=== PATIENT | male | born 1955 ===

== ENCOUNTER 2017-03-29 11:11 | Emergency (ER) | payer MEDICAID ==
[2017-03-29 11:18] VITALS: BMI 29.7
[2017-03-29 11:21] VITALS: PULSE 68
--- NOTE | 2017-03-29 11:56 | C.PDOC ---
History Of Present Illness 61 year old male who presents to the ER with a complaint of a spinning sensation worseing the morning when he sits up in bed for the past 3 days. Patient states it occasionally occurs during the day but last only a few seconds. Denies headache, numbness, weakness, visual changes, or hearing changes. Time Seen by Provider: 03/29/17 11:52 Chief Complaint (Nursing): Dizziness/Lightheaded History Per: Patient History/Exam Limitations: no limitations Onset/Duration Of Symptoms: Hrs Current Symptoms Are (Timing): Still Present Activity At Onset Of Symptoms: Other (Sitting up) Seizure Or Post-ictal Symptoms: None Fall Associated With With Symptoms: No Recent travel outside of the [place]: No - Symptoms Of CVA Associated Symptoms: denies: Impaired Speech, Seizure Activity, New Vision Deficit(Left), New Vision Deficit(Right), Decreased Ability To Walk, New Confusion Recent Aspirin Use: No Current Coumadin Use?: No Recent Head Trauma: No Past Medical History Reviewed: Historical Data, Nursing Documentation, Vital Signs Vital Signs: Last Vital Signs Temp 97.7 F 03/29/17 12:21 Pulse 68 03/29/17 12:21 Resp 17 03/29/17 12:21 BP 135/83 03/29/17 12:21 Pulse Ox 97 03/29/17 12:21 - Medical History PMH: Anxiety, Back Problems, Hyperlipidemia Surgical History: Back Surgery Family History: States: Other Other Family History: nc - Social History Hx Tobacco Use: No Hx Alcohol Use: No Hx Substance Use: No - Immunization History Hx Tetanus Toxoid Vaccination: No Hx Influenza Vaccination: No Hx Pneumococcal Vaccination: No Review Of Systems Constitutional: Negative for: Fever, Chills Eyes: Negative for: Vision Change ENT: Negative for: Other (Hearing changes) Cardiovascular: Negative for: Chest Pain Respiratory: Negative for: Cough, Shortness of Breath Gastrointestinal: Negative for: Nausea, Vomiting, Abdominal Pain, Diarrhea Neurological: Positive for: Other (Spinning sensation). Negative for: Weakness , Numbness, Headache Physical Exam - Physical Exam Appears: Non-toxic Skin: Normal Color, Warm, Dry Head: Atraumatic, Normacephalic Eye(s): bilateral: Normal Inspection, PERRL, EOMI Oral Mucosa: Moist Neck: Normal, Supple Chest: Symmetrical, No Tenderness Cardiovascular: Rhythm Regular, No Murmur Respiratory: Normal Breath Sounds, No Rales, No Rhonchi, No Wheezing Gastrointestinal/Abdominal: Soft, No Tenderness Neurological/Psych: Oriented x3, Normal Speech, Normal Cognition, Normal Cranial Nerves, Normal Motor, Normal Sensation, Other (No focal deficits) Gait: Steady ED Course And Treatment O2 Sat by Pulse Oximetry: 99 (Room air) Pulse Ox Interpretation: Normal Progress Note: EKG and accucheck ordered. Disposition - Disposition Disposition: HOME/ ROUTINE Disposition Time: 12:08 Condition: GOOD Additional Instructions: Please follow up with your doctor in the next week. Return to the ER for any worsening symptoms, headache, visual or hearing changes, numbness, weakness or for any other concerns. Prescriptions: Meclizine [Meclizine*] 25 mg PO Q8H PRN #30 tab PRN Reason: vertigo Instructions: Benign Paroxysmal Positional Vertigo (ED) Forms: General Discharge Instructions - Clinical Impression Clinical Impression: BPPV (benign paroxysmal positional vertigo) - Scribe Statement The provider has reviewed the documentation as recorded by the Scribdenise James All medical record entries made by the Scribe were at my direction and personally dictated by me. I have reviewed the chart and agree that the record accurately reflects my personal performance of the history, physical exam, medical decision making, and the department course for this patient. I have also personally directed, reviewed, and agree with the discharge instructions and disposition.
[2017-03-29 12:23] VITALS: BP 135/83; RESP 17; TEMP 97.7
[2017-03-29 20:04] VITALS: O2SAT 99
--- NOTE | 2017-03-30 21:35 | CARD ---
APPROVED REPORT EKG Measurement Heart [id number] CT 124P32 [id number] <Conclusion> Normal sinus rhythm Normal ECG
== END 2017-03-29 12:22 | disposition home or self-care (01) ==
LOC: C.ER 11:11
DX: H81.10 Benign paroxysmal vertigo, unspecified ear (principal)

== ENCOUNTER 2017-12-28 09:15 | Emergency (ER) | payer MEDICAID ==
[2017-12-28 09:15] VITALS: BMI 29.7
--- NOTE | 2017-12-28 09:48 | C.PDOC ---
History Of Present Illness 62 year old male presents to the ED c/o leg twitching at night while laying in bed. Patient reports that at times his leg aches. Patient denies fever, chills, nausea, weakness, numbness. Time Seen by Provider: 12/28/17 09:31 Chief Complaint (Nursing): Lower Extremity Problem/Injury History Per: Patient History/Exam Limitations: no limitations Onset/Duration Of Symptoms: Days Current Symptoms Are (Timing): Still Present Recent travel outside of the [place]: No Additional History Per: Patient - Knee Description Of Injury: Other Currently Unable To: Other Past Medical History Reviewed: Historical Data, Nursing Documentation, Vital Signs Vital Signs: Last Vital Signs Temp 97.4 F L 12/28/17 09:21 Pulse 68 12/28/17 09:21 Resp 20 12/28/17 09:21 BP 129/83 12/28/17 09:21 Pulse Ox 96 12/28/17 10:53 - Medical History PMH: Anxiety, Back Problems, Hyperlipidemia Surgical History: Back Surgery Family History: States: Unknown Family Hx - Social History Hx Tobacco Use: No Hx Alcohol Use: No Hx Substance Use: No - Immunization History Hx Tetanus Toxoid Vaccination: No Hx Influenza Vaccination: No Hx Pneumococcal Vaccination: No Review Of Systems Constitutional: Negative for: Fever, Chills Cardiovascular: Negative for: Chest Pain Respiratory: Negative for: Shortness of Breath Gastrointestinal: Negative for: Abdominal Pain Musculoskeletal: Positive for: Leg Pain (twitching ) Skin: Negative for: Rash Neurological: Negative for: Weakness, Numbness Physical Exam - Physical Exam Appears: Non-toxic, No Acute Distress Skin: Normal Color, Warm, Dry Head: Atraumatic, Normacephalic Eye(s): bilateral: Normal Inspection Nose: No Discharge Oral Mucosa: Moist Neck: Normal ROM, Supple Extremity: Normal ROM, No Tenderness, Capillary Refill (< 2 seconds), No Swelling Pulses: Left Dorsalis Pedis: Normal, Right Dorsalis Pedis: Normal Neurological/Psych: Oriented x3, Normal Motor, Normal Sensation Gait: Steady ED Course And Treatment O2 Sat by Pulse Oximetry: 96 (On RA) Pulse Ox Interpretation: Normal Medical Decision Making Medical Decision Making: Assessment: restless leg syndrome Patient reports Gabapentin worked in the past Patient was prescribed gabapentin and advised to follow up with PMD in 2 days. Disposition Counseled Patient/Family Regarding: Diagnosis, Need For Followup, Rx Given - Disposition Referrals: Ben Varghese MD [Medical Doctor] - Disposition: HOME/ ROUTINE Disposition Time: 09:46 Condition: STABLE Additional Instructions: follow up with your doctor in 2 days call to make an appointment take medications as prescribed return to ER if symptoms worsens or progress Prescriptions: Gabapentin 300 mg PO DAILY #15 capsule Instructions: Restless Legs Syndrome Forms: [facility] (Armenian), General Discharge Instructions - Clinical Impression Clinical Impression: Restless leg syndrome - Scribe Statement The provider has reviewed the documentation as recorded by the Scribe Bennett Quintero All medical record entries made by the Scribe were at my direction and personally dictated by me. I have reviewed the chart and agree that the record accurately reflects my personal performance of the history, physical exam, medical decision making, and the department course for this patient. I have also personally directed, reviewed, and agree with the discharge instructions and disposition.
[2017-12-28 09:49] VITALS: BP 129/83; PULSE 68; RESP 20; TEMP 97.4; O2SAT 96
== END 2017-12-28 09:55 | disposition home or self-care (01) ==
LOC: C.ER 09:15
DX: G25.81 Restless legs syndrome (principal)

== ENCOUNTER 2018-02-02 11:18 | Emergency (ER) | payer MEDICAID ==
[2018-02-02 11:19] VITALS: BMI 29.7
[2018-02-02 12:54] LABS: BASO # 0.1 K/uL (0.0-0.2); BASO % 0.7 % (0.0-2.0); EOS # 0.2 K/uL (0.0-0.7); EOS % 2.2 % (0.0-4.0); HEMOGLOBIN 15.3 g/dL (12.0-18.0); LYMPH # 2.7 K/uL (1.0-4.3); LYMPH % 33.3 % (20.0-40.0); MEAN CELL VOLUME 89.1 fL (80.0-94.0); MEAN CORPUSCULAR HEMOGLOBIN 29.8 pg (27.0-31.0); MEAN CORPUSCULAR HGB CONC 33.5 g/dL (33.0-37.0); MEAN PLATELET VOLUME 9.4 fL (7.2-11.7); MONO # 0.9 K/uL (0.0-0.8); MONO % 11.1 % (0.0-10.0); NEUT # 4.3 K/uL (1.8-7.0); NEUT % 52.7 % (50.0-75.0); NRBC % 0.1 % (0.0-2.0); RBC 5.12 Mil/uL (4.40-5.90); RED CELL DISTRIBUTION WIDTH 13.9 % (11.5-14.5); WHITE BLOOD COUNT 8.2 K/uL (4.8-10.8)
[2018-02-02 13:04] LABS: ALB/GLOB RATIO 1.2 (1.0-2.1); ALBUMIN 4.2 g/dL (3.5-5.0); ALT/SGPT 45 U/L (21-72); AST/SGOT 25 U/L (17-59); BLOOD UREA NITROGEN 17 mg/dL (9-20); CALCIUM 9.4 mg/dl (8.6-10.4); GFR AFRICAN-AMERICAN > 60; GFR NON-AFRICAN AMERICAN > 60
[2018-02-02 13:11] LABS: SQUAMOUS EPITHIAL 1 /hpf (0-5); URINE BACTERIA RARE (<OCC); URINE BILIRUBIN NEGATIVE (NEGATIVE); URINE BLOOD NEGATIVE (NEGATIVE); URINE CLARITY Clear (Clear); URINE COLOR Yellow (YELLOW); URINE GLUCOSE (UA) NORMAL (Normal); URINE LEUKOCYTE ESTERASE NEG Leu/uL (Negative); URINE PROTEIN NEGATIVE (NEGATIVE); URINE UROBILINOGEN NORMAL mg/dL (0.2-1.0)
[2018-02-02 13:25] LABS: BARBITURATES, UR NEGATIVE (NEGATIVE); OPIATES, UR NEGATIVE (NEGATIVE); PHENCYCLIDINE, UR NEGATIVE (NEGATIVE)
--- NOTE | 2018-02-02 13:29 | RAD ---
HISTORY: chest pain COMPARISON: 10/10/2013 TECHNIQUE: Chest PA and lateral FINDINGS: LUNGS: No active pulmonary disease. PLEURA: No significant pleural effusion identified. No pneumothorax apparent. CARDIOVASCULAR: Normal. OSSEOUS STRUCTURES: No significant abnormalities. VISUALIZED UPPER ABDOMEN: Normal. OTHER FINDINGS: None. IMPRESSION: No active disease.
[2018-02-02 13:44] LABS: BENZODIAZEPINES, UR POSITIVE (NEGATIVE)
[2018-02-02 13:52] VITALS: BP 116/83; PULSE 64; RESP 18; O2SAT 98
--- NOTE | 2018-02-02 14:10 | C.PDOC ---
History Of Present Illness 62 year old male presents to the ED for evaluation of pain to his left upper quadrant which has been intermittent for the past week. Patient also reports vomiting and states symptoms worsen at night. He denies any association of pain with movement and when taking deep breaths. Patient has been taking Ciproflaxin and Dicyclomine as prescribed. He denies fever, chills, dysuria. Time Seen by Provider: 02/02/18 12:24 Chief Complaint (Nursing): Abdominal Pain History Per: Patient History/Exam Limitations: no limitations Onset/Duration Of Symptoms: Days (1 week ), Intermittent Episodes Current Symptoms Are (Timing): Still Present Location Of Pain/Discomfort: LUQ Quality Of Discomfort: "Pain" Associated Symptoms: Vomiting. denies: Fever, Chills, Urinary Symptoms Exacerbating Factors: denies: Movement, Deep Breaths Additional History Per: Patient Past Medical History Reviewed: Historical Data, Nursing Documentation, Vital Signs Vital Signs: Last Vital Signs Temp Pulse 64 02/02/18 13:52 Resp 18 02/02/18 13:52 BP 116/83 02/02/18 13:52 Pulse Ox 98 02/02/18 14:29 - Medical History PMH: Anxiety, Back Problems, Hyperlipidemia Surgical History: Back Surgery Family History: States: Unknown Family Hx - Social History Hx Tobacco Use: No Hx Alcohol Use: No Hx Substance Use: No - Immunization History Hx Tetanus Toxoid Vaccination: No Hx Influenza Vaccination: No Hx Pneumococcal Vaccination: No Review Of Systems Constitutional: Negative for: Fever, Chills Gastrointestinal: Positive for: Vomiting, Abdominal Pain (left upper quadrant ) Genitourinary: Negative for: Dysuria Physical Exam - Physical Exam Appears: Non-toxic, No Acute Distress Skin: Normal Color, Warm, Dry Head: Atraumatic, Normacephalic Eye(s): bilateral: Normal Inspection Oral Mucosa: Moist Neck: Supple Chest: Symmetrical, No Deformity, No Tenderness Cardiovascular: Rhythm Regular, No Murmur Respiratory: Normal Breath Sounds, No Rales, No Rhonchi, No Wheezing Gastrointestinal/Abdominal: Soft, No Tenderness, No Guarding, No Rebound Back: No CVA Tenderness Extremity: Normal ROM, Capillary Refill (less than 2 seconds ) Neurological/Psych: Oriented x3, Normal Speech, Normal Cognition ED Course And Treatment - Laboratory Results Result Diagrams: 02/02/18 12:48 02/02/18 12:48 ECG: Interpreted By Me, Viewed By Me ECG Rhythm: Sinus Rhythm Interpretation Of ECG: Normal Sinus Rhyth at rate 59bpm. No ST elevations or depressions. Rate From EC O2 Sat by Pulse Oximetry: 98 (on RA) Pulse Ox Interpretation: Normal - Other Rad CXR X-Ray: Interpreted by Me, Viewed By Me, Read By Radiologist Interpretation: HISTORY: chest pain. COMPARISON: 10/10/2013. TECHNIQUE: Chest PA and lateral. FINDINGS: LUNGS: No active pulmonary disease. PLEURA: No significant pleural effusion identified. No pneumothorax apparent. CARDIOVASCULAR: Normal. OSSEOUS STRUCTURES: No significant abnormalities. VISUALIZED UPPER ABDOMEN: Normal. OTHER FINDINGS: None. IMPRESSION: No active disease. Medical Decision Making Medical Decision Making: Impression: 62 year old male with left upper quadrant abdominal pain Plan: * bloodwork * urinalysis * CXR * EKG * reassess and disposition Progress; Bloodwork, urinalysis, CXR, EKG ordered and reviewed. Disposition Counseled Patient/Family Regarding: Diagnosis, Need For Followup - Disposition Disposition: HOME/ ROUTINE Disposition Time: 14:09 Condition: STABLE Forms: General Discharge Instructions, [facility] (Guinean), Work Excuse - POA Present On Arrival: None - Clinical Impression Clinical Impression: Abdominal pain - Scribe Statement The provider has reviewed the documentation as recorded by the Scribe (Haritha Gallardo) Provider Attestation: All medical record entries made by the Scribe were at my direction and personally dictated by me. I have reviewed the chart and agree that the record accurately reflects my personal performance of the history, physical exam, medical decision making, and the department course for this patient. I have also personally directed, reviewed, and agree with the discharge instructions and disposition.
--- NOTE | 2018-02-03 19:25 | CARD ---
APPROVED REPORT EKG Measurement Heart [id number] TN 148P33 [id number] <Conclusion> Sinus bradycardia Otherwise normal ECG
== END 2018-02-02 14:18 | disposition home or self-care (01) ==
LOC: C.ER 11:18
DX: R10.9 Unspecified abdominal pain (principal); E78.5 Hyperlipidemia, unspecified

== ENCOUNTER 2018-04-01 17:06 | Emergency (ER) | payer MEDICAID ==
[2018-04-01 17:07] VITALS: BMI 29.7
--- NOTE | 2018-04-01 18:03 | C.PDOC ---
History Of Present Illness 62 year old male with a history of hernia surgery two weeks ago presents to the emergency department with complaints erythema and drainage from one wound. Patient states he noticed these symptoms a few days ago; he denies fever, or any other complaints. Time Seen by Provider: 04/01/18 17:59 Chief Complaint (Nursing): Abnormal Skin Integrity History Per: Patient History/Exam Limitations: no limitations Onset/Duration Of Symptoms: Days Current Symptoms Are (Timing): Still Present Location Of Injury: Right: Abdomen Quality Of Symptoms: Draining, Other (erythema) Past Medical History Reviewed: Historical Data, Nursing Documentation, Vital Signs Vital Signs: Last Vital Signs Temp 98.4 F 04/01/18 20:28 Pulse 83 04/01/18 20:28 Resp 16 04/01/18 20:28 BP 137/73 04/01/18 20:28 Pulse Ox 99 04/01/18 20:28 - Medical History PMH: Anxiety, Back Problems, Hyperlipidemia Surgical History: Back Surgery, Hernia Repair Family History: States: No Known Family Hx - Social History Hx Tobacco Use: No Hx Alcohol Use: No Hx Substance Use: No - Immunization History Hx Tetanus Toxoid Vaccination: Yes Hx Influenza Vaccination: Yes Hx Pneumococcal Vaccination: No Review Of Systems Except As Marked, All Systems Reviewed And Found Negative. Skin: Positive for: Other (erythema, drainage from hernia repair wound) Physical Exam - Physical Exam Appears: Non-toxic, No Acute Distress Skin: Warm, Dry, Other (wound with 3cm of surrounding erythema to the right inter-abdominal area. ) Head: Atraumatic, Normacephalic Eye(s): bilateral: Normal Inspection Nose: Normal Oral Mucosa: Moist Neck: Normal, Supple Chest: Symmetrical Cardiovascular: Rhythm Regular, No Murmur Respiratory: Normal Breath Sounds, No Rales, No Rhonchi, No Wheezing Gastrointestinal/Abdominal: Normal Exam, Soft, No Tenderness, No Guarding, No Rebound Extremity: Normal ROM Neurological/Psych: Oriented x3, Normal Speech, Normal Cognition ED Course And Treatment - Laboratory Results Result Diagrams: 04/01/18 18:35 04/01/18 18:35 O2 Sat by Pulse Oximetry: 96 (RA) Pulse Ox Interpretation: Normal Medical Decision Making Medical Decision Making: post op wound infection Plan: CMP CBC PTT Prothrombin Time Rocephin 1gm Vancomycin Inj 250ml IVPB US Testicular case discussed with surgicla resident. pt refuses testicular US, states no pain at this time. explained possiblity of torsion, but pt refuses US. seen by surgeyr team, who discussed with surgeon director hr communications and pts primary surgeon. agree to outpt fu in 2 days. Disposition - Disposition Referrals: [facility] [Outside] [facility] [Outside] Disposition: HOME/ ROUTINE Disposition Time: 10:00 Condition: STABLE Additional Instructions: please follow up with you surgeon return to er with worsening symptoms or concerns. Prescriptions: Sulfamethoxazole/Trimethoprim [Bactrim DS 800 mg-160 mg] 1 tab PO BID #20 tab Instructions: How to Prevent Surgical Site Infections, Surgical Wound (DC), Wound Infection Forms: [employer] (Hungarian) - Clinical Impression Clinical Impression: Postoperative wound infection - Scribe Statement The provider has reviewed the documentation as recorded by the Scribe (Sal Mitchell) Provider Attestation: All medical record entries made by the Scribe were at my direction and personally dictated by me. I have reviewed the chart and agree that the record accurately reflects my personal performance of the history, physical exam, medical decision making, and the department course for this patient. I have also personally directed, reviewed, and agree with the discharge instructions and disposition.
[2018-04-01 18:39] LABS: BASO # 0.1 K/uL (0.0-0.2); BASO % 0.7 % (0.0-2.0); EOS # 0.5 K/uL (0.0-0.7); EOS % 6.3 % (0.0-4.0); HEMOGLOBIN 14.2 g/dL (12.0-18.0); LYMPH # 2.1 K/uL (1.0-4.3); LYMPH % 25.1 % (20.0-40.0); MEAN CORPUSCULAR HEMOGLOBIN 29.4 pg (27.0-31.0); MEAN CORPUSCULAR HGB CONC 33.4 g/dL (33.0-37.0); MEAN PLATELET VOLUME 9.6 fL (7.2-11.7); MONO # 0.8 K/uL (0.0-0.8); MONO % 9.3 % (0.0-10.0); NEUT # 4.9 K/uL (1.8-7.0); NEUT % 58.6 % (50.0-75.0); RBC 4.84 Mil/uL (4.40-5.90); RED CELL DISTRIBUTION WIDTH 13.9 % (11.5-14.5); WHITE BLOOD COUNT 8.3 K/uL (4.8-10.8)
[2018-04-01 18:52] LABS: ALB/GLOB RATIO 1.4 (1.0-2.1); ALBUMIN 4.3 g/dL (3.5-5.0); ALT/SGPT 38 U/L (21-72); AST/SGOT 23 U/L (17-59); BLOOD UREA NITROGEN 22 mg/dL (9-20); CALCIUM 9.2 mg/dl (8.6-10.4); GFR AFRICAN-AMERICAN > 60; GFR NON-AFRICAN AMERICAN > 60
[2018-04-01 19:02] LABS: INR 1.1; PROTHROMBIN TIME 11.5 SECONDS (9.7-12.2)
[2018-04-01] MEDS ORDERED: Vancomycin 1 gm/NS 200 ml 1 GM/200 ML BAG IVPB ONE (20:00)
--- NOTE | 2018-04-01 20:47 | CP.PCM.CON ---
History of Present Illness - History of Present Illness History of Present Illness: General Surgery Consult for Dr. Gallardo Consulted for surgical site infection 62M presents to the ED POD#14 s/p Robotic inguinal hernia repair with Dr. Olivas at [place]. He reports that on POD 9 his plastic dressing fell off in the shower. By day 12 he reports noticable erythema at the right sided port site. He reports that yesterday he was able to express "1 drop of pus" from the wound. He thought at the time it was the lotion that he was applying however today he looked at the lotion and said the color/texture was different. He reports that he has pain in the area surrounding the wound. He reports the pain as sharp and reports that he took motrin 600mg which did not help. He denies any fevers, chills, he denies changes in bowel habits, or character of his stools, denies nausea or vomiting. He reports the reason he came to the ER is because the surgeon told him " If there is any pus or blood from the incision site go to the nearest ER emergently." PMH: Denies PMH or psych history however chart reflects history of BIPOLAR PSH: Robotic inguinal hernia repair Meds: Motrin ALL: Denies Social: Denies Tobacco, Ethanol, or Drugs Review of Systems - Review of Systems All systems: reviewed and no additional remarkable complaints except - Constitutional Constitutional: absent: Anorexia, Chills - EENT Eyes: absent: Blurred Vision, Change in Vision Ears: absent: Decreased Hearing, Tinnitus - Cardiovascular Cardiovascular: absent: Chest Pain, Dyspnea - Respiratory Respiratory: absent: Dyspnea, Dyspnea on Exertion - Gastrointestinal Gastrointestinal: absent: Abdominal Pain, Bloating - Genitourinary Genitourinary: absent: Difficulty Urinating, Dysuria Past Patient History - Infectious Disease Hx of Infectious Diseases: None - Past Social History Smoking Status: Never Smoked - MUSCULOSKELETAL/RHEUMATOLOGICAL Hx Musculoskeletal Disorders: Yes - GENITOURINARY/GYNECOLOGICAL Hx Genitourinary Disorders: Yes Hx Prostate Problems: Yes Other/Comment: Prostate sx - PSYCHIATRIC Hx Anxiety: Yes Hx Substance Use: No - SURGICAL HISTORY Hx Surgeries: Yes Hx Herniorrhaphy: Yes Hx Orthopedic Surgery: Yes (right shoulder) - ANESTHESIA Hx Anesthesia: Yes Hx Anesthesia Reactions: No Hx Malignant Hyperthermia: No Meds Home Medications: Home Medication List Medication Instructions Recorded Confirmed Type Sulfamethoxazole/Trimethoprim 1 tab PO BID #20 tab 04/01/18 Rx [Bactrim DS 800 mg-160 mg] Allergies/Adverse Reactions: Allergies Allergy/AdvReac Type Severity Reaction Status Date / Time acetaminophen [From Tylenol] Allergy ITCHING Verified 02/02/18 11:43 diphenhydramine HCl Allergy ITCHING Verified 02/02/18 11:43 [From Benadryl] - Medications Medications: Current Medications Vancomycin/Sodium Chloride (Vancomycin 1 Gm/Ns 200 Ml) 1 gm in 200 mls @ 133.333 mls/hr IVPB ONCE ONE PRN Reason: Protocol Stop: 04/01/18 21:29 Ceftriaxone Sodium 1 gm/ (Sodium Chloride) 100 mls @ 100 mls/hr IVPB DAILY MANDEEP PRN Reason: Protocol Last Admin: 04/01/18 20:08 Dose: 100 mls/hr Physical Exam - Constitutional Appears: Non-toxic, No Acute Distress - Head Exam Head Exam: ATRAUMATIC, NORMOCEPHALIC - Eye Exam Eye Exam: EOMI, Normal appearance - ENT Exam ENT Exam: Mucous Membranes Moist, Normal Exam - Respiratory Exam Respiratory Exam: NORMAL BREATHING PATTERN - Cardiovascular Exam Cardiovascular Exam: +S1, +S2 - GI/Abdominal Exam GI & Abdominal Exam: Soft. absent: Normal Bowel Sounds Additional comments: Localized tenderness to the area surrounding the right port site incision with surrounding erythema about 1cm radius, no fluctuance. - Neurological Exam Neurological exam: Alert, Oriented x3 - Psychiatric Exam Psychiatric exam: Normal Affect, Normal Mood - Skin Skin Exam: Dry, Intact Results - Vital Signs Recent Vital Signs: Last Vital Signs Temp 98.4 F 04/01/18 20:28 Pulse 83 04/01/18 20:28 Resp 16 04/01/18 20:28 BP 137/73 04/01/18 20:28 Pulse Ox 99 04/01/18 20:28 - Labs Result Diagrams: 04/01/18 18:35 04/01/18 18:35 Labs: Laboratory Results - last 24 hr 04/01/18 04/01/18 04/01/18 18:35 18:35 18:46 WBC 8.3 RBC 4.84 Hgb 14.2 Hct 42.6 MCV 88.0 MCH 29.4 MCHC 33.4 RDW 13.9 Plt Count 176 MPV 9.6 Neut % (Auto) 58.6 Lymph % (Auto) 25.1 Harrison % (Auto) 9.3 Eos % (Auto) 6.3 H Baso % (Auto) 0.7 Neut # (Auto) 4.9 Lymph # (Auto) 2.1 Harrison # (Auto) 0.8 Eos # (Auto) 0.5 Baso # (Auto) 0.1 PT 11.5 INR 1.1 APTT 33 Sodium 144 Potassium 3.7 Chloride 103 Carbon Dioxide 30 Anion Gap 15 BUN 22 H Creatinine 1.0 Est GFR ( Amer) > 60 Est GFR (Non-Af Amer) > 60 Random Glucose 143 H Calcium 9.2 Total Bilirubin 0.3 AST 23 ALT 38 Alkaline Phosphatase 48 Total Protein 7.3 Albumin 4.3 Globulin 3.0 Albumin/Globulin Ratio 1.4 Assessment & Plan - Assessment and Plan (Free Text) Assessment: 62M POD14 s/p robotic hernia repair with surgical site infection Afebrile No leukocytosis Non draining wound I called Dr. Olivas who informed me that the patient has an appointment to see him in office in 3 days. He was informed of labs, vitals and physical exam findings. He suggested that the patient be discharged with PO ancef or bactrim. Plan: Recommend discharge home on PO antibiotics If symptoms worsen over the weekend prior to office visit I recommend returning to [place] where his surgeon has privileges. The patient was discussed with Dr. Sami Monroe PGY3
[2018-04-01 22:31] VITALS: BP 121/78; PULSE 57; RESP 18; TEMP 97.8; O2SAT 98
== END 2018-04-01 22:31 | disposition home or self-care (01) ==
LOC: C.ER 17:06
DX: T81.4XXA Infection following a procedure, initial encounter (principal); Y83.8 Other surgical procedures as the cause of abnormal reaction of the patient, or of later complication, without mention of misadventure at the time of the procedure; Y92.89 Other specified places as the place of occurrence of the external cause
CPT/HCPCS: 76870; 80053; 85025; 85610; 85730; 96365; 99285; J0696; J3370

== ENCOUNTER 2018-04-08 09:18 | Emergency (ER) | payer MEDICAID ==
[2018-04-08 09:19] VITALS: BMI 29.7
[2018-04-08 09:33] VITALS: BP 138/83; PULSE 78; RESP 20; TEMP 98.1; O2SAT 96
== END 2018-04-08 09:39 | disposition left against medical advice (07) ==
LOC: C.ER 09:18
DX: Z02.89 Encounter for other administrative examinations (principal)

== ENCOUNTER 2018-08-16 10:41 | Emergency (ER) | payer MEDICAID ==
[2018-08-16 10:41] VITALS: BMI 29.7
[2018-08-16 10:49] VITALS: TEMP 97.5; O2SAT 96
--- NOTE | 2018-08-16 11:20 | RAD ---
Date of service: 08/16/2018 HISTORY: chest wall pain COMPARISON: 02/02/2018 TECHNIQUE: Chest PA and lateral FINDINGS: LUNGS: No active pulmonary disease. PLEURA: No significant pleural effusion identified. No pneumothorax apparent. CARDIOVASCULAR: No aortic atherosclerotic calcification present. Normal cardiac size. No pulmonary vascular congestion. OSSEOUS STRUCTURES: No significant abnormalities. VISUALIZED UPPER ABDOMEN: Normal. OTHER FINDINGS: None. IMPRESSION: No active disease.
--- NOTE | 2018-08-16 11:20 | C.PDOC ---
History Of Present Illness 63 year old male with a history of bipolar disorder and hyperlipidemia presents to the ED for evaluation of right lower rib pain for 1 week. Patient reports pain when breathing. Denies smoking, drinking, fever, trauma, cough, chest pain, abdominal pain, and any other associated symptoms. Time Seen by Provider: 08/16/18 10:47 Chief Complaint (Nursing): Rib Injury History Per: Patient History/Exam Limitations: no limitations Onset/Duration Of Symptoms: Days (x1 week.) Current Symptoms Are (Timing): Still Present Past Medical History Reviewed: Historical Data, Nursing Documentation, Vital Signs Vital Signs: Last Vital Signs Temp 97.5 F L 08/16/18 10:44 Pulse 67 08/16/18 10:44 Resp 18 08/16/18 10:44 BP 157/84 H 08/16/18 10:44 Pulse Ox 96 08/16/18 10:44 - Medical History PMH: Anxiety, Back Problems, Hyperlipidemia Surgical History: Back Surgery, Hernia Repair Family History: States: Unknown Family Hx - Social History Hx Tobacco Use: No Hx Alcohol Use: No Hx Substance Use: No - Immunization History Hx Tetanus Toxoid Vaccination: Yes Hx Influenza Vaccination: No Hx Pneumococcal Vaccination: No Review Of Systems Constitutional: Negative for: Fever, Other (trauma. ) Cardiovascular: Negative for: Chest Pain Respiratory: Negative for: Cough Gastrointestinal: Negative for: Abdominal Pain Musculoskeletal: Positive for: Other (right lower rib pain. ) Physical Exam - Physical Exam Appears: Well, Non-toxic, No Acute Distress Skin: Normal Color, Warm, Dry Head: Atraumatic, Normacephalic Eye(s): bilateral: Normal Inspection Neck: Normal ROM, Supple Chest: Symmetrical, No Deformity, No Tenderness Gastrointestinal/Abdominal: Normal Exam, Soft, No Tenderness Neurological/Psych: Oriented x3, Normal Speech ED Course And Treatment O2 Sat by Pulse Oximetry: 96 (RA) Pulse Ox Interpretation: Normal - Other Rad CXR X-Ray: Viewed By Me, Read By Radiologist Interpretation: FINDINGS: LUNGS: No active pulmonary disease. PLEURA: No significant pleural effusion identified. No pneumothorax apparent. CARDIOVASCULAR: No aortic atherosclerotic calcification present. Normal cardiac size. No pulmonary vascular congestion. OSSEOUS STRUCTURES: No significant abnormalities. VISUALIZED UPPER ABDOMEN: Normal. OTHER FINDINGS: None. IMPRESSION: No active disease. Medical Decision Making Medical Decision Making: Plan: -CXR Progress/Update: 11:45am CXR results discussed with the patient. Advised to RTED if symptoms worsen. Flu-1-2 days with PMD. Disposition Counseled Patient/Family Regarding: Studies Performed, Diagnosis, Need For Followup - Disposition Referrals: [facility] [Outside] [facility] [Outside] Disposition: HOME/ ROUTINE Disposition Time: 11:45 Condition: STABLE Additional Instructions: SONJA HAYS, thank you for letting us take care of you today. Your provider was Mary Camacho MD and you were treated for STOMACH PAIN. The emergency medical care you received today was directed at your acute symptoms. If you were prescribed any medication, please fill it and take as directed. It may take several days for your symptoms to resolve. Return to the Emergency Department if your symptoms worsen, do not improve, or if you have any other problems. Please contact your doctor or call one of the physicians/clinics you have been referred to that are listed on the Patient Visit Information form that is included in your discharge packet. Bring any paperwork you were given at discharge with you along with any medications you are taking to your follow up visit. Our treatment cannot replace ongoing medical care by a primary care provider outside of the emergency department. Thank you for allowing the [facility] team to be part of your care today. Instructions: Muscle Spasms (DC) Forms: [employer] (Danish), General Discharge Instructions - POA Present On Arrival: None - Clinical Impression Clinical Impression: Cramp and spasm - Scribe Statement The provider has reviewed the documentation as recorded by the Scribe (Carmelina Chau) Provider Attestation: All medical record entries made by the Scribe were at my direction and personally dictated by me. I have reviewed the chart and agree that the record accurately reflects my personal performance of the history, physical exam, medical decision making, and the department course for this patient. I have also personally directed, reviewed, and agree with the discharge instructions and disposition.
[2018-08-16 11:55] VITALS: BP 122/74; PULSE 77; RESP 20
== END 2018-08-16 11:55 | disposition home or self-care (01) ==
LOC: C.ER 10:41
DX: R25.2 Cramp and spasm (principal); E78.5 Hyperlipidemia, unspecified

== ENCOUNTER 2018-08-19 06:47 | Emergency (ER) | payer MEDICAID ==
[2018-08-19 06:48] VITALS: BMI 29.7
[2018-08-19 07:12] VITALS: O2SAT 98
--- NOTE | 2018-08-19 08:36 | C.PDOC ---
History Of Present Illness 63 years old male presents to ED for complaints of flank pain. Patient was seen in ER 3 days ago with negative CXR and he was discharged home. Patient states pain was persistent which prompted the ED visit. Patient describes pain worsens with certain movements and deep breaths, and pain is non reproducible with palpation. Denies any other complaints. Time Seen by Provider: 08/19/18 07:29 Chief Complaint (Nursing): Back Pain History Per: Patient History/Exam Limitations: no limitations Onset/Duration Of Symptoms: Hrs, Persistent Current Symptoms Are (Timing): Still Present Previous Symptoms: None Associated Symptoms: None Exacerbating Factor(s): Movement Recent travel outside of the [place]: No Past Medical History Reviewed: Historical Data, Nursing Documentation, Vital Signs Vital Signs: Last Vital Signs Temp 97.3 F L 08/19/18 07:08 Pulse 57 L 08/19/18 07:08 Resp 18 08/19/18 07:08 BP 149/94 H 08/19/18 07:08 Pulse Ox 98 08/19/18 07:08 - Medical History PMH: Anxiety, Back Problems, Hyperlipidemia Surgical History: Back Surgery, Hernia Repair Family History: States: Unknown Family Hx - Social History Hx Tobacco Use: No Hx Alcohol Use: No Hx Substance Use: No - Immunization History Hx Tetanus Toxoid Vaccination: No Hx Influenza Vaccination: No Hx Pneumococcal Vaccination: No Review Of Systems Except As Marked, All Systems Reviewed And Found Negative. Musculoskeletal: Positive for: Other (Flank pain ) Physical Exam - Physical Exam Appears: Non-toxic, No Acute Distress Skin: Normal Color, Warm, Dry, No Rash Head: Atraumatic, Normacephalic Eye(s): bilateral: Normal Inspection, PERRL, EOMI Oral Mucosa: Moist Neck: Normal ROM, Supple Chest: Symmetrical, No Tenderness Cardiovascular: Rhythm Regular, No Murmur Respiratory: Normal Breath Sounds, No Rales, No Rhonchi, No Wheezing Gastrointestinal/Abdominal: Bowel Sounds (Active ), Soft, No Tenderness Back: Normal Inspection, No CVA Tenderness Extremity: Normal ROM Extremity: Bilateral: Atraumatic, Normal Color And Temperature, Normal ROM Pulses: Left Radial: Normal, Right Radial: Normal Neurological/Psych: Oriented x3, Normal Speech Gait: Steady ED Course And Treatment O2 Sat by Pulse Oximetry: 98 (RA) Pulse Ox Interpretation: Normal Progress Note: Administered Toradol. Ordered Drug Screen and Urinalysis. On re- evaluation patient feels better, ambulatory, no neuro deficit. he is stable to be d/c home with PMD follow up. Disposition - Disposition Disposition: HOME/ ROUTINE Disposition Time: 09:22 Condition: STABLE Additional Instructions: Follow up with PMD within 1-2 days. Return to ED if feel worse. Stop taking Ibuprofen, take Toradol (Ketorolac) instead. Prescriptions: Lidocaine 5% [Lidoderm] 1 patch TP DAILY #30 patch Famotidine [Pepcid] 20 mg PO BID #20 tab Methocarbamol [Robaxin-750] 750 mg PO TID #30 tab Ketorolac Tromethamine [Toradol] 10 mg PO TID #30 tab traMADol [Ultram] 50 mg PO Q6 #20 tab Instructions: Low Back Pain in Adults Forms: [facility] (Finnish) - Clinical Impression Clinical Impression: Back pain - PA / COMMERCIAL COLLECTIONS SPECIALIST / Resident Statement MD/DO has reviewed & agrees with the documentation as recorded. - Scribe Statement The provider has reviewed the documentation as recorded by the Laquitaibdenise Hubbard All medical record entries made by the Laquitaibdenise were at my direction and personally dictated by me. I have reviewed the chart and agree that the record accurately reflects my personal performance of the history, physical exam, medical decision making, and the department course for this patient. I have also personally directed, reviewed, and agree with the discharge instructions and disposition.
[2018-08-19 09:01] LABS: URINE BACTERIA RARE (<OCC); URINE BILIRUBIN NEGATIVE (NEGATIVE); URINE BLOOD NEGATIVE (NEGATIVE); URINE CLARITY Clear (Clear); URINE COLOR Yellow (YELLOW); URINE GLUCOSE (UA) NORMAL (Normal); URINE LEUKOCYTE ESTERASE NEG Leu/uL (Negative); URINE PROTEIN NEGATIVE (NEGATIVE); URINE UROBILINOGEN NORMAL mg/dL (0.2-1.0)
[2018-08-19 09:18] LABS: BARBITURATES, UR NEGATIVE (NEGATIVE); OPIATES, UR NEGATIVE (NEGATIVE); PHENCYCLIDINE, UR NEGATIVE (NEGATIVE)
[2018-08-19 09:19] LABS: BENZODIAZEPINES, UR POSITIVE (NEGATIVE)
[2018-08-19 09:30] VITALS: BP 138/79; PULSE 54; RESP 16; TEMP 97.5
== END 2018-08-19 10:05 | disposition home or self-care (01) ==
LOC: C.ER 06:47
DX: M54.9 Dorsalgia, unspecified (principal)
CPT/HCPCS: 80324; 80345; 80346; 80349; 80353; 80358; 80361; 81001; 83992; 96372; 99283; J1885

== ENCOUNTER 2018-11-02 10:36 | Emergency (ER) | payer MEDICAID ==
[2018-11-02 10:36] VITALS: BMI 29.7
[2018-11-02 10:57] VITALS: RESP 20
[2018-11-02] MEDS ORDERED: Sodium Chloride 0.9% 1,000 ML IV STA (11:54)
[2018-11-02] MEDS ORDERED: Sodium Chloride 0.9% 1,000 ML ONE (12:05)
--- NOTE | 2018-11-02 12:25 | C.PDOC ---
History Of Present Illness 63 y/o male comes in to ED stating that last week, he had generalized cramping and pain, and 2 episodes of vomiting, associated with subjective fever. Over the weekend, patient was fine and symptoms resolved. He reports no one is sick at home. Today, he reports he started getting similar cramps and had one episode of vomiting. Patient is currently asymptomatic but concerned so he came to ER. Time Seen by Provider: 11/02/18 11:10 Chief Complaint (Nursing): Abdominal Pain History Per: Patient History/Exam Limitations: no limitations Onset/Duration Of Symptoms: Days Current Symptoms Are (Timing): Still Present Past Medical History Reviewed: Historical Data, Nursing Documentation, Vital Signs Vital Signs: Last Vital Signs Temp 97.8 F 11/02/18 10:55 Pulse 56 L 11/02/18 10:55 Resp 20 11/02/18 10:55 BP 144/85 11/02/18 10:55 Pulse Ox 97 11/02/18 10:55 - Medical History PMH: Anxiety (DENIED 11/02/18), Back Problems Denies: Hyperlipidemia (DENIES 11/02/2018) Surgical History: Back Surgery, Hernia Repair Family History: States: No Known Family Hx - Social History Hx Tobacco Use: No Hx Alcohol Use: No Hx Substance Use: No - Immunization History Hx Tetanus Toxoid Vaccination: No Hx Influenza Vaccination: No Hx Pneumococcal Vaccination: No Review Of Systems Except As Marked, All Systems Reviewed And Found Negative. Constitutional: Positive for: Fever (subjective) Cardiovascular: Negative for: Chest Pain Respiratory: Negative for: Cough, Shortness of Breath Gastrointestinal: Positive for: Vomiting, Abdominal Pain. Negative for: Diarrhea Physical Exam - Physical Exam Appears: Non-toxic, No Acute Distress Skin: Warm, Dry Head: Atraumatic, Normacephalic Eye(s): bilateral: Normal Inspection Oral Mucosa: Moist Neck: Supple Cardiovascular: Rhythm Regular, No Murmur Respiratory: Normal Breath Sounds, No Rales, No Rhonchi, No Wheezing Gastrointestinal/Abdominal: Soft, No Tenderness Extremity: Bilateral: Atraumatic, Normal Color And Temperature, Normal ROM Neurological/Psych: Oriented x3, Normal Speech ED Course And Treatment - Laboratory Results Result Diagrams: 11/02/18 12:25 11/02/18 12:25 O2 Sat by Pulse Oximetry: 97 (RA) Pulse Ox Interpretation: Normal - Other Rad Abdomen X-Ray X-Ray: Interpreted by Me, Viewed By Me Interpretation: Accession No. : [id number]. Patient Name / ID : SAÚL Weiner / [id number]. Exam Date : 11/02/2018 12:03:47 ( Approved ). Study Comment : Sex / Age : M / 63Y. Creator : Mavis Ortiz. Dictator : Mavis Ortiz. [employer] : Mobile Lounge Driver Or Operator : Shayna Ortiz. Approver2 : Report Date : 11/02/2018 13:12:25. My Comment : . Date of service: 11/02/2018. PROCEDURE: Radiographs of the chest and abdomen (obstructive series). HISTORY: abd pain, vomiting. COMPARISON: No prior. TECHNIQUE: AP radiograph of the chest, with upright and supine radiographs of the abdomen. FINDINGS: CHEST: Lungs: Clear. Possible tiny granulomas and/or tiny bone islands over both inferior lawrence thoraces and ribs. Cardiovascular: Normal size heart. No pulmonary vascular congestion. No aortic atherosclerotic calcification present. Pleura: No pleural fluid. No pneumothorax. Other findings: None. ABDOMEN AND PELVIS: Bowel: Moderate colonic stool retention present. No large bowel obstruction. Few air-fluid levels in nondilated small bowel loops are suggested. A minimal enteritis is 1 consideration-normal variant is another. Free air: None. 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 Other findings: Left hemipelvic phleboliths. IMPRESSION: No pulmonary infiltrate. No bowel obstruction suggested. Moderate colonic stool retention. Nonspecific air-fluid levels in the left mid to proximal small bowel loops which are not distended. Nonspecific as above. Clinical follow-up recommended. No free air suggested Progress Note: Labs, UA, and abdomen XR ordered. Administered protonix IV, IV fluids, and zofran IV. On re-evaluation patient feels better, tolerates po and is stable to be d/c home. Disposition - Disposition Disposition: HOME/ ROUTINE Disposition Time: 15:02 Condition: STABLE Additional Instructions: Follow up with PMD within 1-2 days. Return to ED if feel worse. Prescriptions: Docusate Sodium [Colace] 100 mg PO BID #60 capsule Lactulose 30 ml PO DAILY #600 ml Instructions: Constipation, Adult (DC) Forms: [employer] ([place]) - Clinical Impression Clinical Impression: Constipation - PA / CHECK PILOT / Resident Statement MD/DO has reviewed & agrees with the documentation as recorded. - Scribe Statement The provider has reviewed the documentation as recorded by the Scribe Martina Parish All medical record entries made by the Laquitaibdenise were at my direction and personally dictated by me. I have reviewed the chart and agree that the record accurately reflects my personal performance of the history, physical exam, medical decision making, and the department course for this patient. I have also personally directed, reviewed, and agree with the discharge instructions and disposition.
[2018-11-02 12:34] LABS: BASO % 0.6 % (0.0-2.0); EOS # 0.1 K/uL (0.0-0.7); EOS % 2.4 % (0.0-4.0); HEMOGLOBIN 14.8 g/dL (12.0-18.0); LYMPH # 1.4 K/uL (1.0-4.3); LYMPH % 32.1 % (20.0-40.0); MEAN CELL VOLUME 89.9 fL (80.0-94.0); MEAN CORPUSCULAR HEMOGLOBIN 29.9 pg (27.0-31.0); MEAN CORPUSCULAR HGB CONC 33.2 g/dL (33.0-37.0); MEAN PLATELET VOLUME 9.7 fL (7.2-11.7); MONO # 0.6 K/uL (0.0-0.8); MONO % 13.1 % (0.0-10.0); NEUT # 2.3 K/uL (1.8-7.0); NEUT % 51.8 % (50.0-75.0); NRBC % 0.1 % (0.0-2.0); RBC 4.94 Mil/uL (4.40-5.90); RED CELL DISTRIBUTION WIDTH 13.6 % (11.5-14.5); WHITE BLOOD COUNT 4.5 K/uL (4.8-10.8)
[2018-11-02 12:45] LABS: URINE BILIRUBIN NEGATIVE (NEGATIVE); URINE BLOOD 1+ (NEGATIVE); URINE CLARITY Clear (Clear); URINE COLOR Yellow (YELLOW); URINE GLUCOSE (UA) NORMAL (Normal); URINE LEUKOCYTE ESTERASE NEG Leu/uL (Negative); URINE PROTEIN NEGATIVE (NEGATIVE); URINE UROBILINOGEN NORMAL mg/dL (0.2-1.0)
[2018-11-02 12:49] LABS: ALB/GLOB RATIO 1.6 (1.0-2.1); ALBUMIN 4.2 g/dL (3.5-5.0); ALT/SGPT 45 U/L (21-72); AST/SGOT 36 U/L (17-59); BLOOD UREA NITROGEN 16 mg/dL (9-20); CALCIUM 8.6 mg/dl (8.6-10.4); GFR NON-AFRICAN AMERICAN > 60; LIPASE 23 U/L (23-300)
--- NOTE | 2018-11-02 13:15 | RAD ---
Date of service: 11/02/2018 PROCEDURE: Radiographs of the chest and abdomen (obstructive series) HISTORY: abd pain, vomiting COMPARISON: No prior. TECHNIQUE: AP radiograph of the chest, with upright and supine radiographs of the abdomen. FINDINGS: CHEST: Lungs: Clear. Possible tiny granulomas and/or tiny bone islands over both inferior lawrence thoraces and ribs. Cardiovascular: Normal size heart. No pulmonary vascular congestion. No aortic atherosclerotic calcification present Pleura: No pleural fluid. No pneumothorax. Other findings: None. ABDOMEN AND PELVIS: Bowel: Moderate colonic stool retention present. No large bowel obstruction. Few air-fluid levels in nondilated small bowel loops are suggested. A minimal enteritis is 1 consideration-normal variant is another. Free air: None. 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 Other findings: Left hemipelvic phleboliths. IMPRESSION: No pulmonary infiltrate. No bowel obstruction suggested. Moderate colonic stool retention. Nonspecific air-fluid levels in the left mid to proximal small bowel loops which are not distended. Nonspecific as above. Clinical follow-up recommended. No free air suggested
[2018-11-02 14:53] VITALS: BP 131/82; TEMP 98
[2018-11-02 15:02] VITALS: PULSE 63
[2018-11-02 15:08] VITALS: O2SAT 97
== END 2018-11-02 15:23 | disposition home or self-care (01) ==
LOC: C.ER 10:36
DX: K59.00 Constipation, unspecified (principal)
CPT/HCPCS: 74022; 80053; 81001; 83690; 85025; 96361; 96374; 96375; 99285; C9113; J2405; J7030